=== PATIENT | male | born 1965 | race Caucasian/White ===

== ENCOUNTER 2019-05-18 11:54 | Inpatient (IN) | payer OTHER ==
[~2019-05-18] VITALS: Ht 177.8 cm; Wt 95.3 kg
[2019-05-18] VITALS (7 sets, daily range): BP systolic 124–156; BP diastolic 78–99
[2019-05-18] MEDS ORDERED: LISINOPRIL2.5 MG PO (12:07)
[2019-05-18 12:21] LABS: URINE BILIRUBIN NEGATIVE (Negative); URINE BLOOD NEGATIVE (Negative); URINE CLARITY CLEAR; URINE COLOR ORANGE; URINE GLUCOSE-RANDOM NEGATIVE (Negative); URINE KETONES NEGATIVE (Negative); URINE LEUKOCYTES-REFLEX NEGATIVE (Negative); URINE PROTEIN 2+ (Negative); URINE SPECIFIC GRAVITY >= 1.030 (1.005-1.030)
[2019-05-18 12:22] LABS: URINE NITRITE-REFLEX POSITIVE (Negative)
[2019-05-18 12:26] LABS: HEMATOCRIT 46.1 % (42.0-52.0); HEMOGLOBIN 16.1 gm/dL (14.0-18.0); MCH 32.8 pg (26.0-34.0); MCHC 35.1 g/dL (28.0-37.0); MCV 93.5 fL (80.0-100.0); MPV 7.8 fl. (7.2-11.1); NUCLEATED RBCS 0 /100WBC; PLATELET COUNT* 225 thou/uL (150-400); RBC 4.92 mil/uL (4.50-6.00)
[2019-05-18 12:32] LABS: CALCIUM 8.3 mg/dL (8.5-10.1); CREATININE 1.1 mg/dL (0.6-1.3); POTASSIUM 3.6 mmol/L (3.5-5.1)
[2019-05-18 12:35] LABS: SQUAMOUS 0-3 Few /LPF (0-3); URINE WBC-REFLEX 0-5 Rare /HPF (0-5)
[2019-05-18 12:36] LABS: TOTAL BILIRUBIN 2.7 mg/dL (<0.1-1.0); TOTAL PROTEIN 7.7 g/dL (6.4-8.2)
[2019-05-18 12:36] LABS: CASTS None Seen /LPF (None Seen); CRYSTALS None Seen /LPF (None Seen); MUCUS >6 Heavy strn/LPF (None Seen); URINE RBC 0-2 Rare /HPF (0-2)
[2019-05-18 12:56] LABS: ABSOLUTE BASOPHILS 0.2 thou/uL (0.0-0.2); ABSOLUTE LYMPHOCYTES 2.9 thou/uL (0.8-5.3); PLATELET ESTIMATE ADEQUATE
[2019-05-18 14:16] LABS: AMP/METHAMP Negative (Negative); BARBITURATES Negative (Negative); BENZODIAZEPINES Negative (Negative); COCAINE Negative (Negative); METHADONE Negative (Negative); OPIATES Negative (Negative); PCP Negative (Negative); THC Negative (Negative)
[2019-05-18 14:23] LABS: CHOLESTEROL 104 mg/dL (<200); HDL CHOLESTEROL 45 mg/dL (>40); LDL CHOLESTEROL 36 mg/dL (<100); SERUM ASSESSMENT Clear; TC:HDL 2.3 Ratio (Not establshd); TRIGLYCERIDE 117 mg/dL (<150); VLDL 23 mg/dL (<40)
[2019-05-18 15:16] LABS: INR 1.3
[2019-05-18] MEDS ORDERED: LISINOPRIL40 MG PO (15:47)
[2019-05-18 16:35] LABS: MAGNESIUM 2.6 mg/dL (1.8-2.4); PHOSPHORUS* 3.2 mg/dL (2.5-4.9)
[2019-05-18 16:50] LABS: AMMONIA < 10 umol/L (11-32)
--- NOTE | 2019-05-18 17:27 | NUR ---
PATIENT ADMITTED FROM ER TO ROOM 206. ALERT AND ORIENTED X 4. RATING ABD PAIN A 3/10. UP AD ARMANDO. CIWA SCORE 0. IV MULTIVITAMIN BAG INFUSING ORDERED. NPO. REFUSED SCD'S. PATIENT HAD AN ABD US THIS EVENING, DR. YBARRA NOTIFIED, NO NEW ORDERS RECEIVED. ORIENTED TO CALL LIGHT. CALL LIGHT WITHIN REACH. WILL CONTINUE TO MONITOR.
[2019-05-19] VITALS: BP 135/85
[2019-05-19 03:54] VITALS: BP 141/91
[2019-05-19 04:26] LABS: HEMATOCRIT 41.8 % (42.0-52.0); HEMOGLOBIN 14.3 gm/dL (14.0-18.0); MCH 32.7 pg (26.0-34.0); MCHC 34.3 g/dL (28.0-37.0); MCV 95.4 fL (80.0-100.0); RBC 4.38 mil/uL (4.50-6.00); WBC 14.6 thou/uL (4.0-11.0)
[2019-05-19 04:44] LABS: INR 1.3; PROTIME 13.2 Seconds (9.20-11.50)
[2019-05-19 05:07] LABS: ALBUMIN 3.2 g/dL (3.4-5.0); CALCIUM 7.7 mg/dL (8.5-10.1); MAGNESIUM 2.7 mg/dL (1.8-2.4); POTASSIUM 4.1 mmol/L (3.5-5.1); TOTAL BILIRUBIN 1.1 mg/dL (<0.1-1.0); TOTAL PROTEIN 6.8 g/dL (6.4-8.2)
--- NOTE | 2019-05-19 05:07 | NUR ---
PATIENT PROGRESSING TOWARDS GOALS: PATIENT'S PAIN MANAGED WITH MEDICATION PER MAR AND RELAXATION. CIWA REMAINS NEGATIVE. EDUCATION PATIENT ON SYMPTOMS OF WITHDRAWAL AND TO REPORT TO STAFF AT [facility]. PATIENT HAS REMAINED AD ARMANDO, NO COMPLICATIONS. CALL LIGHT WITHIN REACH
--- NOTE | 2019-05-19 09:10 | EKG ---
[place] [address] ELECTROCARDIOGRAM REPORT Name: ARAM TRUJILLO Room: [address] ADM IN M.R.#: [id number] Admission: 05/18/19 Attend Phys: Raul gardner Sa Discharge: Date of : 63 Date of Service: 05/18/19 1226 Report #: [id number] THIS REPORT FOR: //name// [facility] ED Test Date: 2019-05-18 Test Time: 12:26:41 Pat Name: ARAM TRUJILLO Department: Room: [facility] Gender: M [employer]ishing [employer] Operator: AARON : 1965 Requested By: Nabil Mitchell Order Number: [id number] MD: Con Tobar Measurements Intervals [place] Rate: 96 P: 54 MT: 148 QRS: 64 QRSD: 103 T: 22 QT: 347 QTc: 439 Interpretive Statements Sinus rhythm No previous ECG available for comparison Electronically Signed On 05-19-2019 9:08:40 CDT by Con Tobar [email or web address] <ELECTRONICALLY SIGNED> By: Con Tobar MD, [facility] 05/19/19 0908 25 25 Con Tobar MD, [facility] /EPI
[2019-05-19 16:00] VITALS: BP 131/85
--- NOTE | 2019-05-19 17:07 | NUR ---
Pt lives at home with . Pt did not have any DME prior to hospitalization. No known hx of HH services or SNF. SW to continue to follow to assist with safe dc planning and offer resources support for alcohol/substance abuse services.
--- NOTE | 2019-05-19 18:51 | NUR ---
PT UP TO CHAIR IN ROOM. CONTINUE BANANNA BAG AND CIWA IS 0. WILL REMAIN NPO UNTIL THE AM.
[2019-05-19 20:10] VITALS: BP 151/86
[2019-05-20] VITALS: BP 167/94
[2019-05-20 02:07] LABS: GLYCOHEMOGLOBIN (HGB A1C) 5.3 % (4.8-5.6)
[2019-05-20 03:57] VITALS: BP 165/89
--- NOTE | 2019-05-20 05:21 | NUR ---
PATIENT PROGRESSING TOWARDS GOALS: PATIENT ADVANCED TO CLEAR LIQUIDS, TOLERATING WELL WITH NO N/V. PATIENT'S PAIN IN ABDOMEN MANAGED WITH MEDICATION PER MAR AND RELAXATION. CALL LIGHT WITHIN REACH
[2019-05-20 07:23] LABS: HEMATOCRIT 36.3 % (42.0-52.0); HEMOGLOBIN 12.7 gm/dL (14.0-18.0); MCH 33.6 pg (26.0-34.0); MCV 95.9 fL (80.0-100.0); MPV 7.7 fl. (7.2-11.1); RBC 3.79 mil/uL (4.50-6.00); RDW-CV 12.9 % (10.5-14.5); WBC 12.6 thou/uL (4.0-11.0)
[2019-05-20 07:32] LABS: CALCIUM 7.2 mg/dL (8.5-10.1); MAGNESIUM 2.5 mg/dL (1.8-2.4); PHOSPHORUS* 1.9 mg/dL (2.5-4.9); POTASSIUM 3.7 mmol/L (3.5-5.1)
[2019-05-20 12:02] VITALS: BP 149/84
[2019-05-20] MEDS ORDERED: PNV 29-1 TABLE1 EACH PO (12:09)
[2019-05-20 12:22] VITALS: BP 149/84
--- NOTE | 2019-05-20 14:36 | NUR ---
DISCONTINUE IV AND TELE. PT UNDERSTANDS ALL FOLLOW UP ORDERS. WILL DISCHARGE TO HOME.
== END 2019-05-20 14:40 | disposition home or self-care (01) | DRG 871 ==
LOC: M.ERS 11:54 → M.2W 13:56 → M.TBA-ER 13:56 → M.2W 15:28
PROVIDERS: Family Medicine; Internal Medicine; ADMIT Family Medicine
DX: A41.9 Sepsis, unspecified organism (principal); K85.20 Alcohol induced acute pancreatitis without necrosis or infection; N39.0 Urinary tract infection, site not specified; K70.10 Alcoholic hepatitis without ascites; K76.0 Fatty (change of) liver, not elsewhere classified; I10 Essential (primary) hypertension; F10.10 Alcohol abuse, uncomplicated; R73.9 Hyperglycemia, unspecified; Z98.49 Cataract extraction status, unspecified eye; Z79.899 Other long term (current) drug therapy